=== PATIENT | female | born 2000 | race Caucasian/White ===

== ENCOUNTER 2022-09-03 10:18 | Emergency (ER) | payer OTHER, SELFPAY ==
[2022-09-03 10:22] VITALS: BP 124/83; PULSE 84; RESP 18; TEMP 36.8; O2SAT 100
--- NOTE | 2022-09-03 10:30 | ED.FEMALEGU ---
HPI - Female Genitourinary General Chief complaint: Urogenital-Female Stated complaint: abdominal cramps Time Seen by Provider: 09/03/22 10:29 Source: patient and RN notes reviewed Mode of arrival: ambulatory Limitations: no limitations History of Present Illness MD elicited complaint: UTI Onset (ago): day(s) (2) Location of symptoms: urethra Severity: moderate Quality of pain: cramping Consistency: intermittent Vaginal discharge: white Vaginal bleeding: none Urinary symptoms: Dysuria and Urgency Exacerbating factors: urination Relieving factors: none Associated symptoms: denies other symptoms Treatment prior to arrival: none Sexual activity: Yes and New Sexual Partners Related Data Home Medications Medication Instructions Recorded Confirmed valacyclovir 1 gram tablet 1,000 mg PO DAILY PRN BREAK OUT 09/03/22 09/03/22 Allergies Allergy/AdvReac Type Severity Reaction Status Date / Time No Known Allergies Allergy Verified 06/25/19 09:22 Review of Systems Review of Systems: All systems reviewed & are unremarkable except as noted in HPI and below Constitutional: Constitutional: Denies chills PMFSH Past Medical History Medical History Depression IUD (intrauterine device) in place Surgical History Surgical History No history of previous surgery Family History Family History Father Family history unknown Mother Family history unknown Social History Social History Smoking status: Never smoker Alcohol intake: current Alcohol use details: Patient states drink alcohol very infrequently. Substance use: current Substance use type: marijuana Living arrangements: with family Additional living arrangements comments: Lives with sister. Occupation/Education: unemployed Exam Const: General: healthy appearing, no acute distress and alert Nutritional Appearance: well nourished Orientation/consciousness: patient oriented x3 Limitations: no limitations Other: female tech in room during examination. HENMT: Head: normal to inspection Ears: external ears normal Face/Nose/Sinus: Normal external nose present Face and sinus: normal facial exam Mouth: Yes moist mucous membranes Eyes: Conjunctivae: conjunctivae normal Pupils: Equal, round and reactive pupils present EOM: EOMs intact bilaterally Neck: Neck: normal visual inspection Resp: Effort & Inspection: normal respiratory effort Auscultation: clear to auscultation bilaterally Cardio: Rate: regular rate Rhythm: regular rhythm GI: GI Palp: Yes Soft to palpation Auscultation: normal bowel sounds Back/Spine/Pelvis: Cervical Spine: cervical ROM normal Thoracic/Lumbar Spine: thoraco-lumbar ROM normal Skin: General skin exam: normal color Rashes: no rashes Neuro: General: patient oriented x3, moves all extremities, no focal motor deficits and CN's II-XI intact bilaterally Cranial nerves: Yes Nystagmus not present Speech: normal speech Gait exam (Neuro): Normal gait present Extrem: General: normal to inspection and no clubbing, cyanosis or edema Psych: Appearance: grossly normal and well kempt Mental Status: mental status grossly normal Affect: normal affect Attitude: cooperative Course Vital Signs Vital signs: Vital Signs Temperature 36.8 C 09/03/22 10:22 Pulse Rate 84 09/03/22 10:22 Respiratory Rate 18 09/03/22 10:22 Blood Pressure 124/83 09/03/22 10:22 Pulse Oximetry 100 09/03/22 10:22 Temperature 36.8 C 09/03/22 11:21 Pulse Rate 80 09/03/22 11:21 Respiratory Rate 20 09/03/22 11:21 Blood Pressure 120/78 09/03/22 11:21 Pulse Oximetry 100 09/03/22 11:21 Oxygen Delivery Room Air 09/03/22 11:21 MDM - Female Genitourinary Differential Diagnosis Differential diagnosis: Likely urinary tract infection, bacterial
[2022-09-03 10:42] LABS: Appearance Urine Slightly Cloudy (Clear); Bilirubin Urine 1+ (Negative); Blood Urine 3+ (Negative); Color Urine Light Yellow (Yellow); Glucose Urine UA Negative (Negative); Ketones Urine 1+ (Negative); Leukocyte Esterase Ur Trace LEU/UL (Negative); Nitrate Urine Negative (Negative); Protein Urine Trace (Negative); Specific Grav Ur >= 1.030 (1.010-1.020); Urobilinogen Urine 0.2 mg/dL (0.2-1.0); pH Urine 5.5 (5.0-8.0)
[2022-09-03 10:46] LABS: Add Urine Microscopic? YES; Squamous Epithelial Cell Urine Many /hpf (Few)
[2022-09-03 10:47] LABS: Bacteria Urine 3+ /hpf
[2022-09-03 11:21] VITALS: BP 120/78; PULSE 80; RESP 20; TEMP 36.8; O2SAT 100
== END 2022-09-03 11:22 | disposition home or self-care (01) ==
PROVIDERS: Emergency Provider Emergency Medicine; PCP Family Medicine
DX: N30.01 Acute cystitis with hematuria (principal)
CPT/HCPCS: 81001; 99283